=== PATIENT | female | born 1960 | race Caucasian/White ===

== ENCOUNTER 2023-07-23 08:36 | Emergency (ER) | payer BC, SELFPAY ==
[2023-07-23 08:53] VITALS: BP 160/85
--- NOTE | 2023-07-23 09:17 | ED.GENMED ---
History of Present Illness
<Mukesh Shah PA-C - Last Filed: 07/23/23 15:04>
General
Chief Complaint: Abdominal Symptoms
Time Seen by Provider: 07/23/23 08:57
Travel History
Have you had any contact with someone who has COVID-19?: No
Do you have any symptoms of coronavirus? Fever > 100 degrees, chills, cough, shortness of breath, sore throat, loss of taste or smell, muscle aches, or headache?: No
History of Present Illness
History of Present Illness:
63-year-old female with history of GERD presents to the emergency department for evaluation of upper abdominal pain that began this morning. She reports nausea with no vomiting, did have a normal bowel movement this morning. Denies any fever,
chills, sweats. No history of intra-abdominal surgery. Pain gradually worsening since onset, no meds taken for pain control. Denies alcohol or tobacco use, previously was on routine doses of NSAIDs due to chronic back pain but had an epidural
approximately 3 weeks ago and has not used NSAIDs since that time.
Past History
<Mukesh Shah PA-C - Last Filed: 07/23/23 15:04>
Past History
ED Past Medical History: Arrthythmia (svt palpitations) and GERD
Social History
Tobacco: Non-smoker
Alcohol: None
Drug: None
Personal:
Living: with family
Employment: Employed
Review of Systems
<Mukesh Shah PA-C - Last Filed: 07/23/23 15:04>
Review of Systems
Allergies reviewed?: Yes
All Other Systems: ROS reviewed and negative except as documented in HPI and ROS
Phy Exam
<Mukesh Sahh PA-C - Last Filed: 07/23/23 15:04>
Physical Exam
Physical Exam:
GEN: Well appearing, NAD, WDWN
Eyes: PERRLA, EOMs intact, no scleral icterus
HENT: NCAT, oral mucosa moist
Lungs: CTAB, no wheezes, rales, rhonchi, normal chest wall excursion
Cardiac: RRR, no M/R/G, no peripheral edema. Radial pulses 2+ bilat
Abdomen: Moderate epigastric tenderness, no rigidity, negative Wagoner sign, no lower abdominal tenderness
Neuro: AO x 3
MSK: No gross deformity or ecchymosis. No edema. No digital clubbing
Skin: No rashes, petechiae. Normal color, no pallor or jaundice.
Psych: Calm, cooperative, proper hygiene
Course
<Mukesh Shah PA-C - Last Filed: 07/23/23 15:04>
Orders/Labs/Results
Orders:
Orders
07/23/23 09:13
Urinalysis Reflex To Culture Urgent
Date Specimen was Collected: 07/23/23
Time Specimen was Collected: 09:00
07/23/23 09:14
CMP [Comprehensive Metabolic Panel] Urgent
Complete Blood Count/With Diff Urgent
Lipase Urgent
07/23/23 09:16
0.9% Sodium Chloride 1000 ml [Nss] 1,000 ml IV BOLUS
Ketorolac [Toradol] 15 mg IV NOW STA
Ondansetron Injectable [Zofran] 4 mg IV NOW STA
07/23/23 10:31
Morphine Sulfate 4 mg IV NOW STA
07/23/23 10:33
CT Abd/Pel (IV only)-DH only Urgent
Comment:
Reason For Exam: epigastric pain
07/23/23 12:42
Sucralfate Suspension [Carafate Suspension] 1 gm PO NOW STA
07/23/23 13:07
Ondansetron Injectable [Zofran] 4 mg IV NOW STA
Abnormal Lab Results
07/23/23
09:14
WBC 4.7 L 10^3/uL
(4.8-10.8)
Absolute Lymphs (auto) 0.9 L 10^3/uL
(1.2-3.4)
Lymphocytes % 18.3 L %
(20.5-51.1)
07/23/23 09:14
07/23/23 09:14
Vital Signs
Initial and Last Documented VS:
Initial Vital Signs
Temp Pulse Resp BP Pulse Ox
98.4 F 83 16 160/85 98
07/23/23 08:53 07/23/23 08:53 07/23/23 08:53 07/23/23 08:53 07/23/23 08:53
Last Documented Vital Signs
Temp Pulse Resp BP Pulse Ox
98.4 F 82 16 125/73 96
07/23/23 08:53 07/23/23 14:10 07/23/23 08:53 07/23/23 14:10 07/23/23 11:05
<Angelica Dyer MD - Last Filed: 07/23/23 10:57>
Orders/Labs/Results
Orders:
Orders
07/23/23 09:13
Urinalysis Reflex To Culture Urgent
Date Specimen was Collected: 07/23/23
Time Specimen was Collected: 09:00
07/23/23 09:14
CMP [Comprehensive Metabolic Panel] Urgent
Complete Blood Count/With Diff Urgent
Lipase Urgent
07/23/23 09:16
0.9% Sodium Chloride 1000 ml [Nss] 1,000 ml IV BOLUS
Ketorolac [Toradol] 15 mg IV NOW STA
Ondansetron Injectable [Zofran] 4 mg IV NOW STA
07/23/23 10:31
Morphine Sulfate 4 mg IV NOW STA
07/23/23 10:33
CT Abd/Pel (IV only)-DH only Urgent
Comment:
Reason For Exam: epigastric pain
07/23/23 12:42
Sucralfate Suspension [Carafate Suspension] 1 gm PO NOW STA
07/23/23 13:07
Ondansetron Injectable [Zofran] 4 mg IV NOW STA
Abnormal Lab Results
07/23/23
09:14
WBC 4.7 L 10^3/uL
(4.8-10.8)
Absolute Lymphs (auto) 0.9 L 10^3/uL
(1.2-3.4)
Lymphocytes % 18.3 L %
(20.5-51.1)
07/23/23 09:14
07/23/23 09:14
Vital Signs
Initial and Last Documented VS:
Initial Vital Signs
Temp Pulse Resp BP Pulse Ox
98.4 F 83 16 160/85 98
07/23/23 08:53 07/23/23 08:53 07/23/23 08:53 07/23/23 08:53 07/23/23 08:53
Last Documented Vital Signs
Temp Pulse Resp BP Pulse Ox
98.4 F 82 16 125/73 96
07/23/23 08:53 07/23/23 14:10 07/23/23 08:53 07/23/23 14:10 07/23/23 11:05
<Mukesh Shah PA-C - Last Filed: 07/23/23 15:04>
MDM/Problems Addressed
MDM/Problems Addressed:
Patient's labs and imaging are unremarkable. Most likely gastritis/GERD. She is already on H2 blockers and PPIs thus we will increase to high strength twice daily PPI and add Carafate. Do not suspect this is biliary colic as she has no gallstones
appreciable by CT scan and no right upper quadrant tenderness. Will treat supportively, recommend outpatient GI follow-up
<Mukesh Shah PA-C - Last Filed: 07/23/23 15:04>
*Critical Care Note
Total Time (30-74mins, 75-104mins- exclusive of procedures): Not Applicable
ED Attending Note
<Mukesh Shah PA-C - Last Filed: 07/23/23 15:04>
-
Portions of this chart may have been created with voice recognition software.� Occasional wrong word or��sound alike� substitutions may have occurred due to the inherent limitations of voice recognition software.
<Angelica Dyer MD - Last Filed: 07/23/23 10:57>
ED Attending Note
Patient seen and examined by attending physician: Yes
I performed the substantive portion of visit, reviewed & personally made and approve the management plan that is documented in note by myself or LISETH.: Yes
ED Attending Note:
Patient appears well nontoxic. Heart sounds regular lungs are clear. Patient has epigastric tenderness on exam without pulsatile mass. Patient awaiting CT. LFTs and lipase normal
Discharge Plan
Departure
Patient Disposition: Home (Routine Discharge)
Date of Disposition: 07/23/23
Time of Disposition: 13:43
Patient with high blood pressure during this ER visit?: No
Discharge Problem:
Acute epigastric pain
Instructions: Gastritis (DC)
Prescriptions:
New
pantoprazole 40 mg tablet,delayed release (DR/EC)
40 mg PO BID 14 Days Qty: 28 0RF
sucralfate [Carafate] 1 gram tablet
1 g PO AC Qty: 60 0RF
No Action
albuterol sulfate 2.5 mg /3 mL (0.083 %) solution for nebulization
2.5 mg inhalation Q4H PRN (Reason: bronchospasm) Qty: 75 0RF
prednisone 50 mg tablet
50 mg PO DAILY Qty: 5 0RF
Referrals:
Ivette Collier MD [Active] -
Gale Maldonado CRNP [Family Provider] -
Activity Restrictions/Additional Instructions:
Stop your omeprazole in favor of protonix twice daily
Interventions
Interventions:
*Risk Screen - Suicide Last Done: 07/23/23 08:59
*General Assessment Last Done: 07/23/23 09:15
*Neglect/Abuse Screening Last Done: 07/23/23 08:59
ED- Fall Risk Assessment Last Done: 07/23/23 09:15
*ED COVID-19 Vaccine History Last Done: 07/23/23 08:53
*Nursing Disposition Last Done: 07/23/23 14:10
HE-Dhoytf-Qmdswqdvrx Assessment Last Done: 07/23/23 09:15
Discharge Date and Time
Discharge Date/Time: 07/23/23 14:14
[2023-07-23] MEDS: ZOFRAN 4 MG IV ×2 (09:25→13:09)
[2023-07-23 09:27] LABS: Urine Albumin Negative (Neg - Trace); Urine Bilirubin Negative (Negative); Urine Character Clear (Clear); Urine Color Yellow; Urine Glucose Negative (Negative); Urine Ketone Negative (Negative); Urine Leukocyte Negative (Negative); Urine Nitrite Negative (Negative); Urine Occult Blood Negative (Negative); Urine Urobilinogen Negative (Neg - 1+)
[2023-07-23] MEDS: TORADOL 15 MG IV (09:27)
[2023-07-23 09:28] LABS: % Basophils 0.4 % (0-2); % Eosinophils 1.7 % (0-6); % Immature Granulocytes 0.4 % (0-0.5); % Lymphocytes 18.3 % (20.5-51.1); % Monocytes 4.9 % (1.7-9.3); % Neutrophils 74.3 % (42.2-75.2); Absolute Eosinophils 0.1 10^3/uL (0-0.7); Absolute Lymphocytes 0.9 10^3/uL (1.2-3.4); Absolute Monocytes 0.2 10^3/uL (0.1-0.6); Absolute Neutrophils 3.5 10^3/uL (1.4-6.5); Hematocrit 42.2 % (37.0-47.0); Hemoglobin 14.3 g/dL (12.0-16.0); Mean Corp Hgb Conc. 33.9 g/dL (33.0-37.0); Mean Corpuscular Hgb 30.5 pg (27.0-31.0); Mean Platelet Volume 8.4 fL (7.4-10.4); Nucleated Red Blood Cells % 0 %; Platelet Count 147 10^3/uL (130-400); Red Blood Cell Count 4.69 10^6/uL (4.20-5.40); White Blood Cell Count 4.7 10^3/uL (4.8-10.8)
[2023-07-23] MEDS: NSS 1000 IV (09:29)
[2023-07-23 09:45] LABS: ALT (SGPT) 18 U/L (0-35); AST (SGOT) 22 U/L (14-36); Albumin 3.7 g/dl (3.5-5.0); Alkaline Phosphatase 73 U/L (38-126); Blood Urea Nitrogen 15 mg/dl (7-17); Calcium 9.4 mg/dl (8.4-10.2); Carbon Dioxide 28 mmol/L (22-30); Chloride 105 mmol/L (98-107); Glucose 96 mg/dl (70-99); Potassium 3.5 mmol/L (3.5-5.1); Sodium 140 mmol/L (135-145); Total Bilirubin 0.8 mg/dl (0.2-1.3); Total Protein 6.5 g/dl (6.3-8.2); eGFR > 60.00
[2023-07-23 09:48] VITALS: BP 143/74
[2023-07-23 10:00] VITALS: BP 134/63
[2023-07-23 10:31] LABS: Lipase 105 U/L (23-300)
[2023-07-23] MEDS: MORPHINE SULFATE 4 MG IV (10:35)
[2023-07-23] MEDS: CARAFATE SUSPENSION 1 GM PO (13:05)
[2023-07-23 13:54] VITALS: BP 125/73
[2023-07-23 14:10] VITALS: BP 125/73
== END 2023-07-23 14:14 | disposition home or self-care (01) ==
LOC: EMR 08:36
PROVIDERS: EMERGENCY PHYSICIAN Emergency Medicine; FAMILY PHYSICIAN Nurse Practitioner
DX: R10.13 Epigastric pain (principal)
CPT/HCPCS: 99284; 96374; 96375; 96376; 96361; 74177; 80053; 81003; 83690; 85025; Q9967

== ENCOUNTER → 2023-11-17 13:08 | Outpatient (REF) | payer BC, SELFPAY ==
[2023-11-17 13:18] VITALS: BMI 27.4
== END ==
LOC: RCS 13:08
PROVIDERS: ATTENDING PHYSICIAN Surgery; FAMILY PHYSICIAN Nurse Practitioner
DX: K80.50 Calculus of bile duct without cholangitis or cholecystitis without obstruction (principal)
CPT/HCPCS: 36415; 93005

== ENCOUNTER 2024-08-13 22:23 | Emergency (ER) | payer BC, SELFPAY ==
[2024-08-13 22:24] VITALS: BP 151/71
--- NOTE | 2024-08-13 22:51 | ED.GENMED ---
History of Present Illness
General
Chief Complaint: Abdominal Pain
Source: patient and spouse
Time Seen by Provider: 08/13/24 22:36
History of Present Illness
History of Present Illness:
This patient is a 64-year-old female who states that she does have a history of cholelithiasis. She ate some chocolate from [place] at 2:30 PM. She eating anything after that, but around 6 PM she developed abdominal 'cramping' that is especially in the
upper abdomen but noted to be throughout associated with nausea, nonbloody vomiting, and nonbloody diarrhea. She had an episode of fecal incontinence because the diarrhea was so immediate. Her symptoms continue here. She denies chest pain,
shortness of breath, dizziness, diaphoresis, back pain, urinary symptoms, or other complaints. She denies sick contacts or recent travel.
Past History
Past History
ED Past Medical History: Arrthythmia (svt palpitations) and GERD
Social History
Tobacco: Non-smoker
Alcohol: None
Drug: None
Personal:
Living: with family
Employment: Employed
Phy Exam
Physical Exam
Physical Exam:
GENERAL: Alert , actively retching
EYE: pupils equal and reactive
NECK: Supple, no significant adenopathy.
ENT: o/p clr, mm dry
CARDIAC: Regular rate and rhythm .
LUNGS: Clear breath sounds bilaterally, no acute respiratory distress, no wheezes/rales/rhonchi
ABDOMEN: Soft, diffuse nonspecific tenderness, no r/g
NEUROLOGICAL: Alert and oriented, no focal neuro deficits
SKIN: Warm and dry, skin intact.
MUSCULOSKELETAL: No edema, well perfused.
PSYCH: Normal and appropriate interaction.
Course
Orders/Labs/Results
Orders:
Orders
08/13/24 22:50
0.9% Sodium Chloride 1000 ml [Nss] 1,000 ml IV BOLUS
Morphine Sulfate 4 mg IV NOW STA
Ondansetron Injectable [Zofran] 4 mg IV NOW STA
08/13/24 23:21
Complete Blood Count/No Diff Urgent
Comprehensive Metabolic Panel Urgent
Lipase Urgent
08/14/24 00:31
US Abdomen Complete/Upper Urgent
Reason For Exam: ABD PAIN, N, V, D
08/14/24 01:36
Acetaminophen 1000MG/100Ml [Ofirmev] 1,000 mg in 100 ml IV ONCE
Acetaminophen IV Indication:: No IA & No Enteral Access
Ondansetron Injectable [Zofran] 4 mg IV NOW STA
08/14/24 01:37
CT Abd/Pel (IV only)-DH only Urgent
Comment:
Reason For Exam: abd pain, n, v, d
08/14/24 01:51
Morphine Sulfate 4 mg IV NOW STA
Abnormal Lab Results
08/13/24
23:21
Hct 47.1 H %
(37.0-47.0)
Glucose 163 H mg/dl
(70-99)
08/13/24 23:21
08/13/24 23:21
Vital Signs
Initial and Last Documented VS:
Initial Vital Signs
Temp Pulse Resp BP Pulse Ox
98.9 F 107 20 151/71 99
08/13/24 22:24 08/13/24 22:24 08/13/24 22:24 08/13/24 22:24 08/13/24 22:24
Last Documented Vital Signs
Temp Pulse Resp BP Pulse Ox
98.6 F 78 16 104/64 95
08/14/24 03:55 08/14/24 03:55 08/14/24 03:55 08/14/24 03:55 08/14/24 03:55
*Critical Care Note
Total Time (30-74mins, 75-104mins- exclusive of procedures): Not Applicable
Update Note
Update Note:
Patient presents to the Emergency Department with abdominal pain nausea vomiting diarrhea
Number and Complexity of Problems Addressed at the Encounter
� Chronic conditions affecting care:
� Acute Exacerbation and/or Progression of Chronic Illness:
� Differential Diagnosis includes: But not limited to pancreatitis, cholecystitis, food poisoning, gastroenteritis, etc. etc. etc.
Amount and/or Complexity of Data to be Reviewed and Analyzed
� I performed an independent evaluation of and my interpretation is:
EKG:
CT: 3:12 AM CAT scan report reviewed air-fluid levels within nonpathologically dilated loops of small and large bowel borderline wall mucosal thickening of some loops of small bowel small mesenteric lymph nodes in the correct
clinical context this may represent enterocolitis. Subtle heterogenicity of the pancreatic head possibly pancreatitis please correlate with amylase and lipase no discrete mass or evidence for pancreatic or CBD dilatation. Gallstones but no
evidence of surrounding inflammatory changes or biliary dilatation, normal appendix, kidneys unremarkable, occasional indeterminate low-density lesions of the liver may represent small cysts.
Xrays:
Laboratory Studies: Generally unremarkable
Other: Ultrasound vision report small layering gallstones no signs of acute cholecystitis intrahepatic biliary dilatation however the CBD is normal in caliber correlate with LFTs and consider further evaluation with
contrast-enhanced CT or MRI/MRCP unremarkable kidney spleen and visualized pancreas
� Review of other/old records reveals:
� Clinical information was obtained by an independent historian: who is bedside
� Prescriptions/Medications Considered but not given:
� Further testing considered but not performed:
Risk of Complications and/or Morbidity or Mortality of Patient Management
� Social determinants of health affecting care:
� Discussion with other providers (PCP, Hospitalists, Consultants, etc):
� Escalation of care including admission/observation vs risk of discharge considered: 1:50 AM no further diarrhea, pain is improved although not fully resolved, no further vomiting although she still is having dry heaves.
Patient now has a low-grade fever, antipyretics ordered as well as more antinausea and pain medication. Awaiting ultrasound read although I do not see findings to convince me that she has acute cholecystitis. In the interim, I have ordered a CAT
scan for further evaluation
3:28 AM patient feels much better, no further vomiting or diarrhea. Smiling. Abdomen soft and nontender. She does have occasional abdominal cramping, but no tenderness to palpation. She is eager to go home. I did describe to her the somewhat
equivocal/nonspecific findings on her CAT scan and ultrasound. She understands importance of follow-up regarding these as well as reasons return to the ER
ED Attending Note
-
Portions of this chart may have been created with voice recognition software.� Occasional wrong word or��sound alike� substitutions may have occurred due to the inherent limitations of voice recognition software.
Discharge Plan
Departure
Patient Disposition: Home (Routine Discharge)
Date of Disposition: 08/14/24
Time of Disposition: 03:28
Patient with high blood pressure during this ER visit?: Yes
Condition: Good
Discharge Problem:
Abdominal pain, vomiting, and diarrhea
Instructions: Diarrhea in teens and adults, Nausea and Vomiting, Adult (DC), Abdominal Pain, BLOOD PRESSURE
Prescriptions:
New
ondansetron HCl 4 mg tablet
4 mg PO Q8H PRN (Reason: nausea and vomiting) Qty: 7 0RF
dicyclomine 10 mg capsule
10 mg PO BID PRN (Reason: cramping) Qty: 13 0RF
No Action
omeprazole 40 mg Capsule,Delayed Release(Dr/Ec)
40 mg PO DAILY
Vitamin D3
1,000 unit PO DAILY
metoprolol tartrate
PO DAILY
Rx Instructions:
unknown dosage
Referrals:
Gale Maldonado CRNP [Family Provider] - Tomorrow
Activity Restrictions/Additional Instructions:
YOU HAVE FINDINGS ON YOUR CAT SCAN AND ULTRASOUND THAT REQUIRE VERY CLOSE FOLLOW-UP AND POTENTIALLY MORE IMAGING TO FURTHER EVALUATE. PLEASE SEE YOUR DOCTOR SOON POSSIBLE TO REVIEW THE STUDIES AND GET THAT ADDITIONAL TESTING. IF YOU DEVELOP
RECURRENT VOMITING, ANY BLEEDING, CHEST PAIN, SHORTNESS OF BREATH, ABDOMINAL PAIN, OR OTHER WORRISOME SIGNS, PLEASE RETURN TO THE ER IMMEDIATELY!
Interventions
Interventions:
*Risk Screen - Suicide Last Done: 08/13/24 23:00
*General Assessment Last Done: 08/13/24 22:24
*Neglect/Abuse Screening Last Done: 08/13/24 23:00
*ED- Fall Risk Assessment Last Done: 08/13/24 23:00
*ED COVID-19 Vaccine History Last Done: 08/13/24 23:24
*Nursing Disposition Last Done: 08/14/24 03:55
CG-Myeuxe-Jngjagowdd Assessment Last Done: 08/13/24 23:00
Discharge Date and Time
Discharge Date/Time: 08/14/24 03:55
Print Language: CYMRO
[2024-08-13] MEDS: MORPHINE SULFATE 4 MG IV (23:15)
[2024-08-13] MEDS: NSS 1000 IV (23:15)
[2024-08-13] MEDS: ZOFRAN 4 MG IV (23:16)
[2024-08-13 23:23] VITALS: BMI 27.3
[2024-08-13 23:32] LABS: Hematocrit 47.1 % (37.0-47.0); Hemoglobin 15.7 g/dL (12.0-16.0); Mean Corp Hgb Conc. 33.3 g/dL (33.0-37.0); Mean Corpuscular Hgb 30.3 pg (27.0-31.0); Mean Corpuscular Volume 90.8 fL (81.0-99.0); Mean Platelet Volume 8.5 fL (7.4-10.4); Platelet Count 210 10^3/uL (130-400); Red Blood Cell Count 5.19 10^6/uL (4.20-5.40); Red Cell Dist. Width 14.3 % (11.5-14.5); White Blood Cell Count 5.3 10^3/uL (4.8-10.8)
[2024-08-13 23:43] LABS: ALT (SGPT) 20 U/L (0-35); AST (SGOT) 25 U/L (14-36); Albumin 4.5 g/dl (3.5-5.0); Alkaline Phosphatase 103 U/L (38-126); Blood Urea Nitrogen 14 mg/dl (7-17); Calcium 9.8 mg/dl (8.4-10.2); Carbon Dioxide 26 mmol/L (22-30); Chloride 104 mmol/L (98-107); Estimated Creatinine Clearance 61 ml/min; Glucose 163 mg/dl (70-99); Lipase 108 U/L (23-300); Potassium 4.1 mmol/L (3.5-5.1); Sodium 139 mmol/L (135-145); Total Bilirubin 1.1 mg/dl (0.2-1.3); Total Protein 7.3 g/dl (6.3-8.2); eGFR > 60.00
[2024-08-13 23:57] VITALS: BP 146/92
[2024-08-14 01:32] VITALS: BP 132/63
[2024-08-14] MEDS: ZOFRAN 4 MG IV (01:49)
[2024-08-14] MEDS: OFIRMEV 100 IV (01:49)
[2024-08-14] MEDS: MORPHINE SULFATE 4 MG IV (01:58)
[2024-08-14 03:55] VITALS: BP 104/64
== END 2024-08-14 03:55 | disposition home or self-care (01) ==
LOC: EMR 22:23
PROVIDERS: EMERGENCY PHYSICIAN Emergency Medicine; FAMILY PHYSICIAN Nurse Practitioner
DX: K80.20 Calculus of gallbladder without cholecystitis without obstruction (principal); R10.10 Upper abdominal pain, unspecified; R11.2 Nausea with vomiting, unspecified; R19.7 Diarrhea, unspecified
CPT/HCPCS: 96374; 96375; 96376; 96361; 99284; 74177; 76700; 80053; 83690; 85027; Q9967

== ENCOUNTER 2024-08-19 06:54 | Emergency (ER) | payer BC, SELFPAY ==
[2024-08-19] VITALS (7 sets, daily range): BP systolic 89–150; BP diastolic 59–90; BMI 27.7
--- NOTE | 2024-08-19 07:40 | ED.GENMED ---
History of Present Illness
General
Chief Complaint: Abdominal Symptoms
Source: patient
Exam Limitations: none
Time Seen by Provider: 08/19/24 07:17
Nursing documentation reviewed up to this point in time: agreed with
History of Present Illness
History of Present Illness:
pt is a 64 y/o F with h/o GERD, back pain, MVP
here with RUQ pain, nausea
pt was here on 08/13 for GI sxs, abd cramping, nausea, vomiting, diarrhea after eating chocolate she ordered online
pt had gallstone on US, ct showed enteritis vs. ileus
labs were ok
pt went home with zofran and bentyl
said the vomiting stopped the following day and diarrhea stopped 2 days later but she has not had appetite and when she does try to eat she has felt some nausea and some pain
pt tolerated chicken 2 nights ago but last night ate a burger and since has had more significant waxing and wanin gcramping in RUQ
she normally can tolerate meat without pain; she was aware of this gallstone from lsat year
pt saw outpatient gen surgrey dr. rainey previously but decided she wanted to wait on sanjeev
pt has had 3-4 loose bm overnight, 1 looked farzana colored this morning
no fever
no vomiting
no cp
no sob
no urinary symptoms
no black stool
Past History
Past History
ED Past Medical History: Arrthythmia (svt palpitations) and GERD
Social History
Tobacco: Non-smoker
Alcohol: None
Drug: None
Personal:
Living: with family
Employment: Employed
Review of Systems
Review of Systems
Allergies reviewed?: Yes
All Other Systems: Not applicable
Phy Exam
Physical Exam
Physical Exam:
GENERAL: Alert , in no apparent distress
EYE: pupils equal and reactive
NECK: Supple
ENT: o/p clr, mmm.
CARDIAC: Regular rate and rhythm .
LUNGS: Clear breath sounds bilaterally, no acute respiratory distress, no wheezes/rales/rhonchi
ABDOMEN: Soft, mild RUQ tenderness no r/g, no cvat, normal bowel sounds
NEUROLOGICAL: Alert and oriented, no focal neuro deficits
SKIN: Warm and dry, skin intact.
MUSCULOSKELETAL: No edema, well perfused. neg erika's sign
PSYCH: Normal and appropriate interaction.
Course
Orders/Labs/Results
Orders:
Orders
08/19/24 07:39
0.9% Sodium Chloride 1000 ml [Nss] 1,000 ml IV BOLUS
Famotidine [Pepcid] 20 mg IV NOW STA
Ketorolac [Toradol] 30 mg IV NOW STA
US Abdomen Limited Urgent
Reason For Exam: ruq pain, ccramping recent gb finding on previous
08/19/24 07:54
Complete Blood Count/With Diff Urgent
Comprehensive Metabolic Panel Urgent
Lipase Urgent
Urinalysis Reflex To Culture Urgent
Date Specimen was Collected: 08/19/24
Time Specimen was Collected: 07:45
Urine Microscopic Reflex Cult Urgent
Urine Culture Urgent
ACTHY Source: U
Specimen Description:
Date Specimen was Collected: 08/19/24
Time Specimen was Collected: 07:45
08/19/24 08:58
CT Abd/Pel (IV only)-DH only Urgent
Comment:
Reason For Exam: abd pain; enteritis/ileus on previuos ct
08/19/24 09:13
Dicyclomine HCl [Bentyl] 20 mg IM NOW STA
08/19/24 10:36
Ondansetron Injectable [Zofran] 4 mg IV NOW STA
08/19/24 10:55
Hida Scan [NM Hepatobiliary (hida)] Routine
Comment:
Reason For Exam: abdominal pain
08/19/24 10:56
Consult Surgery [SURGICAL CONSULT] Urgent
Consulting Provider: Lee Henao
Was physician already notified: Yes
Abnormal Lab Results
08/19/24
07:54
WBC 3.7 L 10^3/uL
(4.8-10.8)
Absolute Lymphs (auto) 1.1 L 10^3/uL
(1.2-3.4)
Chloride 109 H mmol/L
(98-107)
Total Protein 6.1 L g/dl
(6.3-8.2)
Ur Occult Blood Reflex 2+ A
(Negative)
Leukocyte Esterase Rfl 1+ A
(Negative)
Urine Albumin (Reflex) 1+ A
(Neg - Trace)
08/19/24 07:54
08/19/24 07:54
Vital Signs
Initial and Last Documented VS:
Initial Vital Signs
Temp Pulse Resp BP Pulse Ox
36.8 C 86 16 150/90 98
08/19/24 06:56 08/19/24 06:56 08/19/24 06:56 08/19/24 06:56 08/19/24 06:56
Last Documented Vital Signs
Temp Pulse Resp BP Pulse Ox
36.8 C 86 16 124/68 98
08/19/24 06:56 08/19/24 06:56 08/19/24 06:56 08/19/24 14:00 08/19/24 14:45
MDM/Problems Addressed
Differential Diagnosis Includes:
gatstroenteritis, gastritis, syptomatic cholelithiasis, viral syndrome, uti, bowel obstruction
MDM/Problems Addressed:
aida mann 64 y/o F with GERD, cholelithiasis
came in on 08/13 for gastroenteritis; (n/v/d) was having waves of pain
wbc, lfts, lipase normal
us showed cholelithiasis, normal CBD no cholecystitis
ct showed enterocolitis vs ileus
went home with bentyl and zofran
vomiting and diarrhea stopped 2 days later; but now with eating she feels worse, had a burger last night and ever since, waves of RUQ pain; had a few loose stools and this morning farzana colored
no fever
well appearing
minimal RUQ tenderness
wbc 3.7, lfts/lipase nomral
repeat US no cholecystitis, cbd 3.[address] shows slightly improved enterocolitis
i'm presuming her pain is just post viral syndrome; but i suppose she could have symptomatic cholelithiasis as well; she saw redd last year she says and opted for diet modification;
pt is still having symptoms, waxing and waning pain and nausea
will medicate with zofran
consulted dr. henao from surgery
who ordered HIDA scan
dispo baed on that
1520
hida neg
d/w surgery dr henao
feels pt can go home based off this HIDA probably her pain is gastroenteritis
pt tolerated jyothi zoie
ready to go home
very bland foods;
outpatient surgery consult
*Critical Care Note
Total Time (30-74mins, 75-104mins- exclusive of procedures): Not Applicable
ED Attending Note
-
Portions of this chart may have been created with voice recognition software.� Occasional wrong word or��sound alike� substitutions may have occurred due to the inherent limitations of voice recognition software.
Discharge Plan
Departure
Patient Disposition: Home (Routine Discharge)
Date of Disposition: 08/19/24
Time of Disposition: 15:09
Patient with high blood pressure during this ER visit?: No
Condition: Fair
Covid-19: Not Applicable
Discharge Problem:
Gastritis, Gastroenteritis
Instructions: Viral gastroenteritis in adults
Prescriptions:
No Action
omeprazole 40 mg Capsule,Delayed Release(Dr/Ec)
40 mg PO DAILY
metoprolol succinate 50 mg Tablet Extended Release 24 Hr
50 mg PO DAILY
famotidine 40 mg Tablet
40 mg PO HS
fluticasone propionate [Flonase] 50 mcg/actuation [place],Suspension
1 spray INTRANASAL DAILYPRN PRN (Reason: allergies)
cholecalciferol (vitamin D3) [Vitamin D3] 25 mcg (1,000 unit) Tablet
25 mcg PO DAILY
ondansetron HCl 4 mg tablet
4 mg PO Q8HPRN PRN (Reason: nausea and vomiting)
rizatriptan 10 mg Tablet
0 mg PO .COMPLEX
Rx Instructions:
take 1 tab at onset of headache; if no relief may repeat 1 tab after at least 2 hrs; max = 3 tabs/24 hr
Referrals:
Lee Henao MD [Active] - Follow up in 5-7 days
Yina Gray CRNP [Family Provider] -
Stand Alone Forms: Return to Work
Activity Restrictions/Additional Instructions:
Your symptoms are probably related to a resolving viral vomiting and diarrhea illness. You do incidentally have gallstones but it seems like your pain is probably not caused by the gallstone today. I would recommend avoiding heavy fatty foods for
now. You should really do bland foods like noodle soup, Jell-O, applesauce, etc. for a day or 2 to let your belly heal. You can continue the Zofran or the Bentyl as needed. Take your Pepcid and your Protonix
Follow-up with the surgeons as an outpatient regarding your gallbladder
Return for new fever, worsening pain, persistent vomiting, severe abdominal discomfort or any concern
Interventions
Interventions:
*Risk Screen - Suicide Last Done: 08/19/24 06:56
*General Assessment Last Done: 08/19/24 07:49
*Neglect/Abuse Screening Last Done: 08/19/24 06:56
*ED- Fall Risk Assessment Last Done: 08/19/24 07:49
*ED COVID-19 Vaccine History Last Done: 08/19/24 07:49
IS-Tvnzdh-Bohvfjyoka Assessment Last Done: 08/19/24 07:49
Discharge Date and Time
Print Language: [id number]
[2024-08-19] MEDS: PEPCID 20 MG IV (08:07)
[2024-08-19] MEDS: NSS 1000 IV (08:07)
[2024-08-19] MEDS: TORADOL 30 MG IV (08:07)
[2024-08-19 08:25] LABS: % Basophils 0.5 % (0-2); % Eosinophils 0.5 % (0-6); % Immature Granulocytes 0.5 % (0-0.5); % Monocytes 9.1 % (1.7-9.3); % Neutrophils 60.4 % (42.2-75.2); Absolute Lymphocytes 1.1 10^3/uL (1.2-3.4); Absolute Monocytes 0.3 10^3/uL (0.1-0.6); Absolute Neutrophils 2.2 10^3/uL (1.4-6.5); Hematocrit 41.9 % (37.0-47.0); Hemoglobin 14.2 g/dL (12.0-16.0); Mean Corp Hgb Conc. 33.9 g/dL (33.0-37.0); Mean Corpuscular Hgb 30.2 pg (27.0-31.0); Mean Corpuscular Volume 89.1 fL (81.0-99.0); Mean Platelet Volume 8.8 fL (7.4-10.4); Nucleated Red Blood Cells % 0 %; Platelet Count 188 10^3/uL (130-400); White Blood Cell Count 3.7 10^3/uL (4.8-10.8)
[2024-08-19 08:41] LABS: Urine Albumin 1+ (Neg - Trace); Urine Bilirubin Negative (Negative); Urine Character Clear (Clear); Urine Color Yellow; Urine Glucose Negative (Negative); Urine Ketone Negative (Negative); Urine Leukocyte 1+ (Negative); Urine Nitrite Negative (Negative); Urine Occult Blood 2+ (Negative); Urine Specific Gravity 1.015 (<1.030); Urine Urobilinogen 1+ (Neg - 1+)
[2024-08-19 08:52] LABS: ALT (SGPT) 28 U/L (0-35); AST (SGOT) 34 U/L (14-36); Albumin 3.8 g/dl (3.5-5.0); Alkaline Phosphatase 76 U/L (38-126); Blood Urea Nitrogen 12 mg/dl (7-17); Calcium 9.3 mg/dl (8.4-10.2); Carbon Dioxide 26 mmol/L (22-30); Chloride 109 mmol/L (98-107); Estimated Creatinine Clearance 76 ml/min; Glucose 94 mg/dl (70-99); Lipase 236 U/L (23-300); Potassium 3.8 mmol/L (3.5-5.1); Sodium 142 mmol/L (135-145); Total Bilirubin 0.8 mg/dl (0.2-1.3); Total Protein 6.1 g/dl (6.3-8.2); eGFR > 60.00
[2024-08-19] MEDS: BENTYL 20 MG IM (09:33)
[2024-08-19 09:42] LABS: Urine Red Blood Cell 0-2 /HPF (0-2)
[2024-08-19] MEDS: ZOFRAN 4 MG IV (11:22)
--- NOTE | 2024-08-19 12:22 | CON.GS ---
Medical History
-
Chief Complaint: Abdominal pain
History of Present Illness:
Patient is a 64 yo F with a PMH of GERD, SVT/palpitations, and chronic back pain s/p injections who presents with epigastric pain and cramping. Mr. Wagoner states that her symptoms initially began approximately 1 week ago. She describes intense
diffuse abdominal cramping as well as several episodes of nausea, vomiting, and diarrhea. She was previously evaluated in the [facility] ER on 08/13 for the symptoms. During this time a CT scan and ultrasound was performed which
demonstrated cholelithiasis without any evidence of cholecystitis as well as findings consistent with enterocolitis versus ileus. She was ultimately discharged at that time. Ms. Wagoner re-presents following an episode of epigastric abdominal
discomfort and recurrence of crampy abdominal pain. This episode appeared to be provoked by a meal consisting of a hamburger. Currently she states that her upper abdominal pain has resolved and only currently has some mild crampy abdominal
discomfort. Mild associated nausea, but no vomiting. She reports passing looser and more yellow appearing stools. No changes in urination. No jaundice. No fevers or chills. She reports a prior similar attack approximately 1 year ago with a
similar workup and diagnosis of biliary sludge and potential gastroenteritis type symptoms. She was evaluated by Dr. Urias around that time. Recommendation for cholecystectomy, however, given her asymptomatic state and improvement she opted to
not pursue this surgical management of her gallbladder at that time. In the interim she has had no recurrent intermittent attacks of epigastric or RUQ abdominal pain.
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
Past Medical History
Past Medical History: Arrhythmias (SVT), GERD and Other (Chronic back pain)
Past Surgical History: Other (Lumbar injections)
Social History
Tobacco: Non-Smoker
Alcohol: None
Personal:
Living: With Family
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
Allergies / Home Medications
Allergy/AdvReac Type Severity Reaction Status Date / Time
codeine Allergy Nausea / Verified 08/19/24 06:58
Vomiting
sulfamethoxazole Allergy Unknown Verified 08/19/24 06:58
[From Bactrim]
trimethoprim [From Bactrim] Allergy Unknown Verified 08/19/24 06:58
�Medication �Instructions �Recorded �Confirmed �Type
omeprazole 40 mg capsule,delayed 40 mg PO DAILY 08/14/24 08/19/24 History
release
cholecalciferol (vitamin D3) 25 25 mcg PO DAILY 08/19/24 08/19/24 History
mcg (1,000 unit) tablet (Vitamin
D3)
famotidine 40 mg tablet 40 mg PO HS 08/19/24 08/19/24 History
fluticasone propionate 50 1 spray intranasal DAILYPRN PRN 08/19/24 08/19/24 History
mcg/actuation nasal allergies
spray,suspension
metoprolol succinate 50 mg 50 mg PO DAILY 08/19/24 08/19/24 History
tablet,extended release 24 hr
ondansetron HCl 4 mg tablet 4 mg PO Q8HPRN PRN nausea and 08/19/24 08/19/24 History
vomiting
rizatriptan 10 mg tablet 0 mg PO .COMPLEX 08/19/24 08/19/24 History
Review of Systems
-
A 10 point review of systems was completed, and was negative except as per HPI.
Physical Exam
Vital Signs
Temp Pulse Resp BP Pulse Ox
98.2 F 86 16 89/59 100
08/19/24 06:56 08/19/24 06:56 08/19/24 06:56 08/19/24 11:00 08/19/24 11:30
08/18/24 08/19/24 08/20/24
06:59 06:59 06:59
Actual Weight 70.9 kg
Body Mass Index (BMI) 27.7
Lab Results
08/19/24 07:54
08/19/24 07:54
WBC 3.7 10^3/uL (4.8-10.8) L 08/19/24 07:54
Hgb 14.2 g/dL (12.0-16.0) 08/19/24 07:54
Hct 41.9 % (37.0-47.0) 08/19/24 07:54
Plt Count 188 10^3/uL (130-400) 08/19/24 07:54
Abs Immat Gran (auto) 0.0 10^3/uL (0-0.05) 08/19/24 07:54
Neutrophils % 60.4 % (42.2-75.2) 08/19/24 07:54
Physical Exam
General: Well Developed, Well Nourished and No Apparent Distress
HEENT: Normocephalic and Anicteric
Respiratory: Non Labored Respirations
Cardiac: Regular Rhythm
GI: Soft, Non Distended, Tender (Minimal more central abdominal tenderness, negative Wagoner sign) and Other (Nonperitoneal)
Musculoskeletal: No Edema
Skin: Warm and Dry
Neuro: Nonfocal/Grossly Intact
Data Reviewed
-
CT Scan: Image Personally Visualized and interpreted and Report Reviewed by me
Ultrasound: Image Personally Visualized and interpreted and Report Reviewed by me
Labs: Labs Reviewed by me
Old Records: Reviewed
Assessment / Plan
-
Patient is a 64 yo F p/w abdominal discomfort
Symptoms most likely related to gastroenteritis given her history, physical exam, and radiographic imaging. Symptomatic cholelithiasis related to biliary sludge does remain in the differential given recent episode of epigastric abdominal pain, as
well as association of symptoms with eating a fatty meal. Currently she has no epigastric or RUQ abdominal tenderness. She does continue to have some centralized abdominal cramping and nausea.
The natural history and pathophysiology of biliary and stone disease was discussed. Ms. Wagoner is not inclined or interested in undergoing cholecystectomy if not absolutely necessary. As noted above, symptoms are more in line with a
gastroenteritis type episode. Options for management were reviewed. Plan for a HIDA scan to rule out biliary pathology. Should this be negative (especially in light of continued symptoms) would feel more confident that her symptoms are related to
gastroenteritis and less likely related to a biliary pathology. If HIDA scan negative no need for further workup or general surgery management. Management and likely ultimate discharge per the ED. Patient agrees. All questions answered.
-- HIDA scan: if negative further management and likely discharge from ED, if positive will need to re-evaluate for cholecystectomy
== END 2024-08-19 15:22 | disposition home or self-care (01) ==
LOC: EMR 06:54
PROVIDERS: Physician Assistant; CONSULT PHYSICIAN Surgery; EMERGENCY PHYSICIAN Student in an Organized Health Care Education/Training Program; FAMILY PHYSICIAN Nurse Practitioner Adult Health
DX: K29.70 Gastritis, unspecified, without bleeding (principal); K52.9 Noninfective gastroenteritis and colitis, unspecified; K80.20 Calculus of gallbladder without cholecystitis without obstruction; G89.29 Other chronic pain; K21.9 Gastro-esophageal reflux disease without esophagitis
CPT/HCPCS: 96372; 96374; 96375; 96361; 99284; 74177; 76705; 78226; 80053; 81003; 81015; 83690; 85025; 87086; A9537; Q9967

== ENCOUNTER → 2024-11-12 14:41 | Outpatient (REF) | payer BC, SELFPAY | LOC: HWRAD 14:41 | PROVIDERS: ATTENDING PHYSICIAN Nurse Practitioner Adult Health; REFERRING PHYSICIAN Nurse Practitioner Family | DX: E04.1 Nontoxic single thyroid nodule (principal); R79.89 Other specified abnormal findings of blood chemistry | CPT/HCPCS: 76536 ==

== ENCOUNTER 2025-05-15 13:09 | Emergency (ER) | payer OTHER, SELFPAY ==
[2025-05-15 13:14] VITALS: BP 185/100
[2025-05-15 13:46] LABS: Hematocrit 40.6 % (37.0-47.0); Hemoglobin 13.5 g/dL (12.0-16.0); Mean Corp Hgb Conc. 33.3 g/dL (33.0-37.0); Mean Corpuscular Volume 92.1 fL (81.0-99.0); Nucleated Red Blood Cells % 0 %; Platelet Count 199 10^3/uL (130-400); Red Cell Dist. Width 13.8 % (11.5-14.5)
[2025-05-15 14:01] LABS: ALT (SGPT) 16 U/L (0-35); AST (SGOT) 25 U/L (14-36); Albumin 4.4 g/dl (3.5-5.0); Alkaline Phosphatase 75 U/L (38-126); Blood Urea Nitrogen 14 mg/dl (7-17); Calcium 9.1 mg/dl (8.4-10.2); Carbon Dioxide 26 mmol/L (22-30); Chloride 105 mmol/L (98-107); Glucose 114 mg/dl (70-99); Potassium 4.5 mmol/L (3.5-5.1); Sodium 139 mmol/L (135-145); Total Protein 6.9 g/dl (6.3-8.2); eGFR > 60.00
[2025-05-15 14:03] LABS: INR 0.99; PT 13.2 Sec (11.4-14.6)
[2025-05-15 18:10] VITALS: BP 149/81
[2025-05-15 18:15] VITALS: BMI 27.1
[2025-05-15 19:12] VITALS: BP 174/88
--- NOTE | 2025-05-15 20:19 | ED.GENMED ---
History of Present Illness
General
Chief Complaint: Rectal Bleeding
Source: patient and family
Exam Limitations: none
Time Seen by Provider: 05/15/25 17:44
Nursing documentation reviewed up to this point in time: agreed with
History of Present Illness
History of Present Illness:
Note:
CHIEF COMPLAINT(S)
- Rectal bleeding
HISTORY OF PRESENT ILLNESS
The patient is a 65-year-old female presenting with rectal bleeding. She reports a long history of hemorrhoids, previously described as both large and small internal hemorrhoids. The patient underwent hemorrhoid banding on March 29, which led to
complications including urinary retention and the development of an anal fissure. This complication resolved after approximately one week.
Recently, on Friday of this week, the patient experienced a significant episode of bleeding following the release of gas, although the bleeding stopped shortly thereafter. However, this morning, following a bowel movement, the patient experienced
excessive rectal bleeding, with a report of bright red blood clots. The bleeding persisted for about an hour, prompting her to seek medical attention. At the time of examination, the bleeding had subsided. The patient reports a history of
hemorrhoids for over 20 years, initially beginning post-childbirth. The patient also describes a perineal dermatitis, likened to a 'rug burn,' that had previously been present.
During the examination, the provider noted areas of excoriation but no active bleeding was observed. The intent to manage the condition with anesthetic suppositories was discussed, explaining that these contain both a steroid and a numbing agent.
The patient was advised that, should the bleeding resume, she must return for immediate medical evaluation. Arrangements were made for communication with her colorectal specialist in the event she requires further intervention.
PHYSICAL EXAM
General: Alert, no acute distress.
Skin: Warm, dry. Patient had excoriated skin in perineal area, consistent with 'rug burn' description.
Head: Normocephalic, atraumatic.
Neck: Supple, trachea midline.
Eye Ears, nose, mouth and throat: Oral mucosa moist.
Cardiovascular: Normal peripheral perfusion, No edema.
Respiratory: Respirations are non-labored.
Gastrointestinal: Abdomen nondistended.
Back: Normal range of motion, Normal alignment.
Musculoskeletal: Normal ROM, normal strength.
Neurological: Alert and oriented to person, place, time, and situation, No focal neurological deficit observed.
Psychiatric: Cooperative, appropriate mood & affect.
PROBLEM LIST
Acute:
- Rectal bleeding
- Hemorrhoids
- Anal fissure (resolved)
PLAN
- Administer anesthetic suppositories with instructions to continue use as directed for symptom relief and to aid healing.
- If additional bleeding occurs, advise immediate return for further assessment.
- Communication plan established with patients colorectal specialist for urgent follow-up or intervention if necessary.
- Educate the patient to contact medical services if symptoms worsen or do not resolve.
DIFFERENTIAL DIAGNOSIS
The Differential Diagnosis includes, in no particular order and is not limited to:
1. Hemorrhoids
2. Anal fissure
3. Colorectal bleeding
4. Diverticulosis
5. Rectal varices
6. Colorectal cancer
7. Inflammatory bowel disease
8. Angiodysplasia
9. Ischemic colitis
10. Rectal prolapse
Disposition:
SUMMARY OF ENCOUNTER
The patient, a 65-year-old female with a history of internal hemorrhoids, presented with rectal bleeding that began intermittently six days ago. She reported waking this morning to find blood clots. Symptoms are consistent with complications from
her known hemorrhoidal disease, for which she has previously undergone banding. Consultation with Dr. Anthony Almonte, a retail salesperson, provided recommendations for management, including the use of Anusol (hydrocortisone acetate) suppositories,
sitz baths, and stool softeners.
DISPOSITION
The patient is to be discharged home.
PLAN
- Start Anusol suppository as prescribed.
- Use sitz baths for symptom relief.
- Begin stool softeners to prevent straining during bowel movements.
- Follow up with her gastroenterology group as advised.
PATIENT EDUCATION AND COUNSELING
The patient was educated on the use of sitz baths, Anusol suppositories, and stool softeners to manage symptoms. She was advised to follow up with her primary GI care provider and to seek care if symptoms escalate.
FOLLOW-UP INSTRUCTIONS
The patient was instructed to follow up with her gastroenterology group for ongoing management of hemorrhoidal disease.
MEDICATION RECONCILIATION
- Prescription provided for Anusol (hydrocortisone acetate) suppositories.
- Stool softeners recommended as part of her treatment regimen.
MEDICAL DECISION MAKING
- Complexity of Data Reviewed: Chronic conditions affecting care: history of hemorrhoids, consultation with a retail salesperson.
- Data:
Category 3: Discussion of management with retail salesperson Dr. Anthony Almonte.
-Risk:
Prescription medication was prescribed, including Anusol suppositories and stool softeners, to manage hemorrhoidal symptoms.
DIAGNOSIS
- Rectal bleeding (K62.5)
- Internal hemorrhoids (K64.8)
Past History
Past History
ED Past Medical History: Arrthythmia (svt palpitations) and GERD
Social History
Tobacco: Non-smoker
Alcohol: None
Drug: None
Personal:
Living: with family
Employment: Employed
Phy Exam
Physical Exam
Physical Exam:
.
Course
Orders/Labs/Results
Orders:
Orders
05/15/25 13:40
Type+Screen Urgent
Complete Blood Count/With Diff Urgent
Comprehensive Metabolic Panel Urgent
Prothrombin Time Urgent
05/15/25 20:15
Anusol Hc Suppository [Anusol Hc] 25 mg RECTAL NOW STA
05/15/25 20:17
Docusate Sodium [Colace] 100 mg PO NOW STA
Abnormal Lab Results
05/15/25
13:40
Glucose 114 H mg/dl
(70-99)
05/15/25 13:40
05/15/25 13:40
Vital Signs
Initial and Last Documented VS:
Initial Vital Signs
Temp Pulse Resp BP Pulse Ox
98.8 F 85 17 185/100 99
05/15/25 13:14 05/15/25 13:14 05/15/25 13:14 05/15/25 13:14 05/15/25 13:14
Last Documented Vital Signs
Temp Pulse Resp BP Pulse Ox
98.8 F 79 12 149/81 100
05/15/25 13:14 05/15/25 18:15 05/15/25 18:15 05/15/25 18:10 05/15/25 18:15
*Pulse Oximetry
SaO2: 100
Oxygen Mode of Delivery: Room air
Patient hypoxic: no
*Critical Care Note
Total Time (30-74mins, 75-104mins- exclusive of procedures): Not Applicable
ED Attending Note
-
Portions of this chart may have been created with voice recognition software.� Occasional wrong word or��sound alike� substitutions may have occurred due to the inherent limitations of voice recognition software.
Discharge Plan
Departure
Patient Disposition: Home (Routine Discharge)
Date of Disposition: 05/15/25
Time of Disposition: 20:26
Patient with high blood pressure during this ER visit?: No
Condition: Good
Discharge Problem:
Bleeding hemorrhoids
Instructions: Hemorrhoids (DC)
Prescriptions:
New
hydrocortisone acetate [Anusol-HC] 25 mg suppository
25 mg MO BID Qty: 12 0RF
docusate sodium [Colace] 100 mg capsule
100 mg PO DAILY Qty: 20 0RF
No Action
omeprazole 40 mg Capsule,Delayed Release(Dr/Ec)
40 mg PO DAILY
metoprolol succinate 50 mg Tablet Extended Release 24 Hr
50 mg PO DAILY
famotidine 40 mg Tablet
40 mg PO HS
fluticasone propionate [Flonase] 50 mcg/actuation Rudy,Suspension
1 spray INTRANASAL DAILYPRN PRN (Reason: allergies)
cholecalciferol (vitamin D3) [Vitamin D3] 25 mcg (1,000 unit) Tablet
25 mcg PO DAILY
ondansetron HCl 4 mg tablet
4 mg PO Q8HPRN PRN (Reason: nausea and vomiting)
rizatriptan 10 mg Tablet
0 mg PO .COMPLEX
Rx Instructions:
take 1 tab at onset of headache; if no relief may repeat 1 tab after at least 2 hrs; max = 3 tabs/24 hr
Referrals:
Candace Cornejo PA-C [Specified Professional Personl, ColoRectal]
Yina Gray CRNP [Family Provider, General]
Activity Restrictions/Additional Instructions:
Please follow-up with Candace Cornejo
Take the stool softener and Anusol suppositories as directed
Sitz baths will also help
Preparation H is recommended
Thank You for choosing [facility].
It was a pleasure meeting you and taking part in your care. We hope for your continued healing and wellness.
Please read discharge instructions in their entirety. However, they are for general education and may not describe your exact diagnosis at discharge. Information on your ER visit and medical conditions were discussed with you along with appropriate
follow up information...
If indicated, please take your medications as instructed and indicated on discharge paperwork.
Please schedule a follow up appointment as directed. Call to schedule an appointment
Please return to the emergency department with ANY change in, persisting, or worsening of symptoms. If any of your symptoms do not improve, or persist, or become more severe within 6-12 hours, please return to the emergency department for further
care.
Please return to the emergency department if you develop a headache, neck pain/stiffness, fever greater than 100.4F, chest pain, shortness of breath, persistent nausea, vomiting, slurred speech, difficulty walking, numbness/tingling, weakness, signs
of infection or any other symptoms that are worrisome to you.
If you have any questions or concerns please do not hesitate to call the Hospital at .
Interventions
Interventions:
*General Assessment Last Done: 05/15/25 13:16
*Neglect/Abuse Screening Last Done: 05/15/25 13:16
*ED COVID-19 Vaccine History Last Done: 05/15/25 13:16
*ED Influenza Vaccine History Last Done: 05/15/25 13:16
[facility] Risk Assessment Tool Last Done: 05/15/25 18:15
*Risk Screen - Suicide (C-SSRS) Last Done: 05/15/25 13:16
DX-Nkhwdx-Scnbsfdcop Assessment Last Done: 05/15/25 18:15
ED- Cardiac Assessment Last Done: 05/15/25 18:15
ED- Pulmonary Assessment Last Done: 05/15/25 18:15
Discharge Date and Time
Print Language: BHUTANESE
[2025-05-15] MEDS: COLACE 100 MG PO (20:26)
== END 2025-05-15 20:34 | disposition home or self-care (01) ==
LOC: EMR 13:09
PROVIDERS: Emergency Medicine; EMERGENCY PHYSICIAN Student in an Organized Health Care Education/Training Program; FAMILY PHYSICIAN Nurse Practitioner Adult Health
DX: K64.8 Other hemorrhoids (principal); Z87.19 Personal history of other diseases of the digestive system
CPT/HCPCS: 99283; 80053; 85025; 85610; 86850; 86900; 86901